=== PATIENT | female | born 1990 | race Caucasian/White ===

== ENCOUNTER 2020-06-25 21:03 | Emergency (ER) | payer MEDICAID ==
[~2020-06-25] VITALS: Ht 165.1 cm; Wt 97.5 kg
[2020-06-25 21:15] VITALS: Ht 165.1 cm; Wt 97.5 kg
[2020-06-25 23:13] VITALS: BP 121/77
== END 2020-06-25 23:13 | disposition home or self-care (01) ==
LOC: ED 21:03
DX: S32.2XXA Fracture of coccyx, initial encounter for closed fracture (principal); V00.121A Fall from non-in-line roller-skates, initial encounter; Y93.51 Activity, roller skating (inline) and skateboarding; Y92.89 Other specified places as the place of occurrence of the external cause; Y99.8 Other external cause status
CPT/HCPCS: J1885